=== PATIENT | female | born 1975 | race Hispanic/Latino ===

== ENCOUNTER 2017-09-18 14:37 | Emergency (ER) | payer SELFPAY ==
[2017-09-18 16:29] VITALS: BP 138/76
== END 2017-09-18 18:39 | disposition left against medical advice (07) ==
LOC: ED 14:37
DX: M54.9 Dorsalgia, unspecified (principal); Z53.21 Procedure and treatment not carried out due to patient leaving prior to being seen by health care provider

== ENCOUNTER 2018-03-04 21:14 | Observation (INO) | payer SELFPAY ==
[2018-03-04] MEDS ORDERED: ASPIRIN PO ONE (22:11)
[2018-03-04 22:30] LABS: Basophils # (Auto) 0.2 K/mm3 (0.0-0.1); Basophils % (Auto) 1.7 % (0.0-1.8); Eosinophils # (Auto) 0.1 K/mm3 (0.0-0.4); Eosinophils % (Auto) 1.5 % (0.0-4.3); Lymphocytes # (Auto) 2.4 K/mm3 (1.2-5.4); Lymphocytes % (Auto) 26.1 % (13.4-35.0); Mean Corpuscular HGB Conc 36 % (30-34); Mean Corpuscular Hemoglobin 31 pg (28-32); Mean Corpuscular Volume 88 fl (79-97); Monocytes # (Auto) 0.9 K/mm3 (0.0-0.8); Monocytes % (Auto) 10.1 % (0.0-7.3); Platelet Count 296 K/mm3 (140-440); Red Blood Count 5.38 M/mm3 (3.65-5.03); Red Cell Distribution Width 12.6 % (13.2-15.2)
[2018-03-04 22:31] LABS: Hematocrit 47.1 % (30.3-42.9); Hemoglobin 16.7 gm/dl (10.1-14.3)
[2018-03-04 22:46] LABS: BUN/Creatinine Ratio 10; Blood Urea Nitrogen 9 mg/dL (7-17); Calcium 9.7 mg/dL (8.4-10.2); Hemolysis Index 8
[2018-03-05] MEDS ORDERED: MORPHINE IV ONE ×2 (04:34→07:25)
--- NOTE | 2018-03-05 05:21 | XRay Report ---
FINAL REPORT PROCEDURE: XR CHEST 1V AP TECHNIQUE: Chest radiograph anteroposterior view. CPT 57421 HISTORY: CP COMPARISON: No prior studies are available for comparison. FINDINGS: Heart: Normal. Mediastinum/Vessels: Normal. Lungs/Pleural space: Lungs are expanded. There are faint right perihilar infiltrates. There are no effusions or pneumothoraces.. Bony thorax: No acute osseous abnormality. Life support devices: None. IMPRESSION: The heart size is normal.. Lungs are expanded. There are faint right perihilar infiltrates. There are no effusions or pneumothoraces..
--- NOTE | 2018-03-05 06:50 | Cat Scan Report ---
FINAL REPORT PROCEDURE: CT THORACIC SPINE W CON TECHNIQUE: Computerized axial tomography of the lumbar spine was performed from T12 to the sacrum without contrast material. HISTORY: Back pain, rule out abscess and malignancy pain at levels t4-t6, possible palpitation of growth between t spine and RT scapula COMPARISON: No prior studies are available for comparison. FINDINGS: There are no fractures or malalignments. The disc spaces are normal. There is no facet dislocation. There is no spinal or foraminal stenosis. Soft tissues are unremarkable. IMPRESSION: No significant abnormality
--- NOTE | 2018-03-05 07:24 | Emergency Department Report ---
HPI - General Chief Complaint: Chest Pain Time Seen by Provider: 03/05/18 05:12 - HPI HPI: 42-year-old female presents to the emergency department with the complaint of midsternal chest pain and upper middle and right sided back pain. Patient has a history of herniated disks in both the thoracic and lumbar back, previous sciatica, degenerative joint disease. She is a tobacco smoker but denies any illicit drug use. She says that her back pain since been going on for "close to 20 years" but over the past few days the pain has been "excruciating", 10 out of 10, and it has been resistant to any [id number] pain medications. The back pain will worsen with certain movements, but even at rest sometimes the pain will be spasmodic. Over the past few days as well, the patient has been having some midsternal chest discomfort. Sometimes she feels like it is a burning sensation, like acid reflux, and other times she feels like she needs to burp but is never able to do so. No recent travel or sick contacts at home. ED Past Medical Hx - Past Medical History Hx Arthritis: Yes Hx Psychiatric Treatment: Yes Additional medical history: thoracic herniation, lumbar herniation, Sciatica, DJD, TMJ, Pain management - Surgical History Additional Surgical History: Tonsil removed - Social History Smoking Status: Former Smoker Substance Use Type: None - Medications Home Medications: Home Medications Medication Instructions Recorded Confirmed Last Taken Type Neomycin/Bacitracin/Polymyxinb 1 applic TP TID #1 tube 10/08/16 Unknown Rx [Neosporin Antibiotic Ointment] ED Review of Systems ROS: Stated complaint: BACK/CHEST PAIN Other details as noted in HPI Comment: All other systems reviewed and negative Constitutional: denies: chills, fever Eyes: denies: eye pain, eye discharge, vision change ENT: denies: ear pain, throat pain Respiratory: SOB with exertion. denies: cough Cardiovascular: chest pain. denies: edema Gastrointestinal: denies: abdominal pain, diarrhea Genitourinary: denies: urgency, dysuria, discharge Musculoskeletal: back pain. denies: arthralgia Skin: denies: rash, lesions Neurological: denies: headache, weakness, paresthesias Physical Exam - Physical Exam Vital Signs: Vital Signs 03/04/18 03/04/18 03/05/18 21:21 22:00 02:35 Temperature 98.0 F 98 F Pulse Rate 111 H 101 H 84 Respiratory 18 18 10 L Rate Blood Pressure 157/96 157/96 130/81 O2 Sat by Pulse 96 96 100 Oximetry 03/05/18 03/05/18 03/05/18 02:44 02:45 03:00 Temperature Pulse Rate 78 84 89 Respiratory 18 24 25 H Rate Blood Pressure 106/66 101/52 O2 Sat by Pulse 100 100 99 Oximetry 03/05/18 03/05/18 03/05/18 03:15 03:30 03:46 Temperature Pulse Rate 87 84 89 Respiratory 24 25 H 13 Rate Blood Pressure 100/51 100/51 133/84 O2 Sat by Pulse 98 99 98 Oximetry 03/05/18 03/05/18 03/05/18 04:00 04:30 04:40 Temperature Pulse Rate 83 88 Respiratory 22 18 18 Rate Blood Pressure 120/78 120/78 O2 Sat by Pulse 100 99 Oximetry 03/05/18 03/05/18 03/05/18 05:00 05:10 05:30 Temperature Pulse Rate 77 81 Respiratory 22 18 21 Rate Blood Pressure 141/82 139/89 O2 Sat by Pulse 97 98 Oximetry ED Course Vital Signs 03/04/18 03/04/18 03/05/18 21:21 22:00 02:35 Temperature 98.0 F 98 F Pulse Rate 111 H 101 H 84 Respiratory 18 18 10 L Rate Blood Pressure 157/96 157/96 130/81 O2 Sat by Pulse 96 96 100 Oximetry 03/05/18 03/05/18 03/05/18 02:44 02:45 03:00 Temperature Pulse Rate 78 84 89 Respiratory 18 24 25 H Rate Blood Pressure 106/66 101/52 O2 Sat by Pulse 100 100 99 Oximetry 03/05/18 03/05/18 03/05/18 03:15 03:30 03:46 Temperature Pulse Rate 87 84 89 Respiratory 24 25 H 13 Rate Blood Pressure 100/51 100/51 133/84 O2 Sat by Pulse 98 99 98 Oximetry 03/05/18 03/05/18 03/05/18 04:00 04:30 04:40 Temperature Pulse Rate 83 88 Respiratory 22 18 18 Rate Blood Pressure 120/78 120/78 O2 Sat by Pulse 100 99 Oximetry 03/05/18 03/05/18 03/05/18 05:00 05:10 05:30 Temperature Pulse Rate 77 81 Respiratory 22 18 21 Rate Blood Pressure 141/82 139/89 O2 Sat by Pulse 97 98 Oximetry ED Medical Decision Making - Lab Data Result diagrams: 03/04/18 22:19 03/04/18 22:19 - EKG Data -: EKG Interpreted by Me EKG shows normal: sinus rhythm (with biatrial enlargement), axis, intervals, QRS complexes, ST-T waves Rate: normal - EKG Data When compared to previous EKG there are: previous EKG unavailable Interpretation: normal EKG Critical care attestation.: If time is entered above; I have spent that time in minutes in the direct care of this critically ill patient, excluding procedure time. ED Disposition Clinical Impression: Intractable back pain, Acute chest pain Disposition: OP ADMIT IP TO THIS HOSP Is pt being admited?: Yes Condition: Stable Instructions: Chest Pain (ED) Referrals: PRIMARY CARE, [Primary Care Provider] - 3-5 Days Time of Disposition: 07:24
[2018-03-05] MEDS ORDERED: TORADOL IV ONE (07:25)
[2018-03-05] MEDS ORDERED: PROTONIX PO ONE ×2 (10:28→14:30)
[2018-03-05] MEDS ORDERED: NITROSTAT SL PRN (10:29)
[2018-03-05] MEDS ORDERED: MORPHINE IV PRN (10:29)
[2018-03-05] MEDS ORDERED: LOVENOX SUB-Q SCH ×2 (11:00)
[2018-03-05] MEDS ORDERED: LEXISCAN IV ONE (11:37)
--- NOTE | 2018-03-05 12:49 | History and Physical Report ---
History of Present Illness Date of examination: 03/05/18 Date of admission: 03/05/18 10:27 Chief complaint: chest pain History of present illness: 42-year-old female presents to the emergency department with the complaint of midsternal chest pain and upper middle and right sided back pain. Patient has a history of herniated disks in both the thoracic and lumbar back, previous sciatica, degenerative joint disease. She is a tobacco smoker but denies any illicit drug use. She says that her back pain since been going on for "close to 20 years" but over the past few days the pain has been "excruciating", 10 out of 10, and it has been resistant to any [id number] pain medications. The back pain will worsen with certain movements, but even at rest sometimes the pain will be spasmodic. Over the past few days as well, the patient has been having some midsternal chest discomfort. Sometimes she feels like it is a burning sensation, like acid reflux, and other times she feels like she needs to burp but is never able to do so. No recent travel or sick contacts at home. Review of systems: Constitutional: denies: chills, fever Eyes: denies: eye pain, eye discharge, vision change ENT: denies: ear pain, throat pain Respiratory: SOB with exertion. denies: cough Cardiovascular: chest pain. denies: edema Gastrointestinal: denies: abdominal pain, diarrhea Genitourinary: denies: urgency, dysuria, discharge Musculoskeletal: back pain. denies: arthralgia Skin: denies: rash, lesions Neurological: denies: headache, weakness, paresthesias Past History Past Medical History: other (back pain) Past Surgical History: No surgical history Social history: smoking, full code. denies: alcohol abuse, prescription drug abuse Family history: no significant family history. denies: CAD, cancer, hypertension, stroke Medications and Allergies Allergies Allergy/AdvReac Type Severity Reaction Status Date / Time No Known Allergies Allergy Unverified 10/08/16 13:09 Home Medications Medication Instructions Recorded Confirmed Last Taken Type Levofloxacin [Levaquin] 750 mg PO QDAY #5 tablet 03/05/18 Unknown Rx traMADol [Ultram 50 MG tab] 50 mg PO Q6HR PRN #10 tablet 03/05/18 Unknown Rx Active Meds: Active Medications Atorvastatin Calcium (Lipitor) 40 mg PO QHS ALEA Enoxaparin Sodium (Lovenox) 40 mg SUB-Q QDAY@1000 ALEA Morphine Sulfate (Morphine) 2 mg IV Q3H PRN PRN Reason: Pain, Moderate (4-6) Nitroglycerin (Nitrostat) 0.4 mg SL .Q5MIN PRN PRN Reason: Chest Pain Exam - Constitutional Vitals: Temp Pulse Resp BP Pulse Ox 98 F 91 H 21 118/70 98 03/04/18 22:00 03/05/18 12:03 03/05/18 05:30 03/05/18 12:03 03/05/18 05:30 General appearance: Present: no acute distress, well-nourished - EENT Eyes: Present: PERRL ENT: hearing intact, clear oral mucosa - Neck Neck: Present: supple, normal ROM - Respiratory Respiratory effort: normal Respiratory: bilateral: CTA - Cardiovascular Heart Sounds: Present: S1 & S2. Absent: rub, click - Extremities Extremities: pulses symmetrical, No edema Peripheral Pulses: within normal limits - Abdominal General gastrointestinal: Present: soft, non-tender, non-distended, normal bowel sounds - Integumentary Integumentary: Present: clear, warm, dry - Musculoskeletal Musculoskeletal: gait normal, strength equal bilaterally - Psychiatric Psychiatric: appropriate mood/affect, intact judgment & insight - Neurologic Neurologic: CNII-XII intact, moves all extremities Results - Labs CBC & Chem 7: 03/04/18 22:19 03/04/18 22:19 Labs: Abnormal lab results 03/04/18 03/04/18 Range/Units 22:19 22:19 RBC 5.38 H (3.65-5.03) M/mm3 Hgb 16.7 H (10.1-14.3) gm/dl Hct 47.1 H (30.3-42.9) % MCHC 36 H (30-34) % RDW 12.6 L (13.2-15.2) % Bollinger % (Auto) 10.1 H (0.0-7.3) % Bollinger # 0.9 H (0.0-0.8) K/mm3 Baso # 0.2 H (0.0-0.1) K/mm3 Chloride 97.3 L (98-107) mmol/L Assessment and Plan Chest pain, atypical -r/o ACS, likely from CAP - place on levaquin, CE negative, No ST changes on EKG - obtain MPI stress test - aspirin, statin Tobacco abuse, counselled Chronic back pain, thoracic spine CT was normal. Radiological data: CT thoracic spine; IMPRESSION: No significant abnormality CXR: IMPRESSION: The heart size is normal.. Lungs are expanded. There are faint right perihilar infiltrates. There are no effusions or pneumothoraces..
--- NOTE | 2018-03-05 13:52 | Discharge Summary ---
Providers - Providers Date of Admission: 03/05/18 10:27 Date of discharge: 03/05/18 Attending physician: HARVINDER DICKSON Primary care physician: RESPIRATORY TECHNICIAN Hospitalization Condition: Stable Hospital course: Discharge diagnosis: Chest pain, atypical -ruled out ACS, likely from CAP - place on levaquin, CE negative, No ST changes on EKG - obtained MPI stress test Tobacco abuse, counselled Chronic back pain, thoracic spine CT was normal. Radiological data: CT thoracic spine; IMPRESSION: No significant abnormality CXR: IMPRESSION: The heart size is normal.. Lungs are expanded. There are faint right perihilar infiltrates. There are no effusions or pneumothoraces.. Disposition: DC- TO HOME OR SELFCARE Time spent for discharge: 32 minutes Core Measure Documentation - Palliative Care Palliative Care/ Comfort Measures: Not Applicable - Core Measures Any of the following diagnoses?: none Exam - Constitutional Vitals: Temp Pulse Resp BP Pulse Ox 98 F 91 H 21 118/70 98 03/04/18 22:00 03/05/18 12:03 03/05/18 05:30 03/05/18 12:03 03/05/18 05:30 General appearance: Present: no acute distress, well-nourished - EENT Eyes: Present: PERRL ENT: hearing intact, clear oral mucosa - Neck Neck: Present: supple, normal ROM - Respiratory Respiratory effort: normal Respiratory: bilateral: CTA - Cardiovascular Heart Sounds: Present: S1 & S2. Absent: rub, click - Extremities Extremities: pulses symmetrical, No edema Peripheral Pulses: within normal limits - Abdominal General gastrointestinal: Present: soft, non-tender, non-distended, normal bowel sounds - Integumentary Integumentary: Present: clear, warm, dry - Musculoskeletal Musculoskeletal: gait normal, strength equal bilaterally - Psychiatric Psychiatric: appropriate mood/affect, intact judgment & insight - Neurologic Neurologic: CNII-XII intact, moves all extremities Plan Activity: advance as tolerated Weight Bearing Status: Partial Weight Bearing Diet: low fat, low salt Follow up with: PRIMARY CARE, [Primary Care Provider] - 3-5 Days Prescriptions: Levofloxacin [Levaquin] 750 mg PO QDAY #5 tablet traMADol [Ultram 50 MG tab] 50 mg PO Q6HR PRN #10 tablet PRN Reason: Pain
[2018-03-05 17:27] VITALS: BP 141/81
--- NOTE | 2018-03-06 06:44 | Treadmill Report ---
NUCLEAR CARDIAC IMAGING INDICATION FOR PROCEDURE: Chest pain. Informed consent was obtained. Vasodilator stress was achieved with the intravenous administration of 0.4 mg of Lexiscan per protocol. ELECTROCARDIOGRAM: The baseline electrocardiogram demonstrates normal sinus rhythm with isoelectric ST segments. Following the intravenous administration of Lexiscan, there were no significant ischemic symptoms or significant ischemic repolarization changes. DESCRIPTION OF PROCEDURE: Resting nuclear cardiac imaging was performed 45-60 minutes following the intravenous administration of 10 mCi of technetium-99m Myoview. Subsequently, stress myocardial perfusion imaging was performed 30-45 minutes following the intravenous administration of 28 mCi of technetium 99m Myoview. Images were obtained in a 180-degree arc from 45 degrees JOSHUA to 45 degrees LPO. After data acquisition and reconstruction, the images were processed and reoriented into the vertical long, horizontal long, and horizontal short axis slices. A polar color map of the horizontal short axis slices was generated and reviewed. The rotating planar images reviewed in cinematic format on the computer console. Gated SPECT imaging demonstrates a post-stress left ventricular ejection fraction of 65%. Left ventricular segmental wall motion appears normal. Myocardial perfusion imaging demonstrates homogeneous distribution of the isotope throughout the left ventricle between stress and rest. No significant stress induced perfusion defects are seen. Lexiscan stress test is clinically and electrocardiographically nonischemic. Nuclear cardiac imaging demonstrates grossly normal post-stress left ventricular systolic function with no significant evidence for myocardial ischemia or necrosis. JOB# [id number] BREA/MAYELIN
== END 2018-03-05 16:45 | disposition home or self-care (01) ==
LOC: ED 21:14 → 4A 03-05 10:27
PROVIDERS: ADMIT Internal Medicine; ATTEND Internal Medicine
DX: R07.89 Other chest pain (principal); M54.9 Dorsalgia, unspecified; G89.29 Other chronic pain; M19.90 Unspecified osteoarthritis, unspecified site; F17.200 Nicotine dependence, unspecified, uncomplicated
CPT/HCPCS: 36415; 71045; 72129; 78452; 80048; 84484; 84703; 85025; 85379; 93005; 93010; 93017; 96372; 96374; 96375; 96376; 99285; A9502; G0378; J1650; J1885; J2270; J2785; Q9967

== ENCOUNTER 2018-04-19 15:17 | Emergency (ER) | payer SELFPAY ==
[2018-04-19 17:02] VITALS: BP 120/79
== END 2018-04-19 23:00 | disposition left against medical advice (07) ==
LOC: ED 15:17
DX: R51 Headache (principal); Z53.21 Procedure and treatment not carried out due to patient leaving prior to being seen by health care provider